=== PATIENT | female | born 1965 | race Two or more races ===

== ENCOUNTER 2021-10-14 07:29 | Outpatient (CLI) | payer OTHER | END 2021-10-14 07:30 | disposition home or self-care (01) | LOC: NUCLEAR 07:29 | PROVIDERS: ATTEND Internal Medicine Rheumatology | DX: M25.59 Pain in other specified joint (principal) | CPT/HCPCS: 78315; A9503 ==

== ENCOUNTER 2023-09-28 08:12 | Outpatient (CLI) | payer OTHER | END 2023-09-28 08:21 | disposition home or self-care (01) | LOC: SONOGRAMA 08:12 | PROVIDERS: ATTEND Internal Medicine Rheumatology | DX: M65.812 Other synovitis and tenosynovitis, left shoulder (principal) ==

== ENCOUNTER 2023-11-18 07:51 | Outpatient (CLI) | payer OTHER | END 2023-11-18 08:05 | disposition home or self-care (01) | LOC: MRI 07:51 | DX: G31.84 Mild cognitive impairment of uncertain or unknown etiology (principal) | CPT/HCPCS: 70551 ==